=== PATIENT | female | born 1965 | race African-American/Black ===

== ENCOUNTER 2021-12-02 20:10 | Emergency (ER) | payer OTHER ==
[2021-12-02 20:35] VITALS: TEMP 98.5
[2021-12-02] MEDS ORDERED: IBUPROFEN 600 MG TAB PO STA (23:59)
[2021-12-02] MEDS ORDERED: SPIRONOLACTONE 25 MG TAB PO STA (23:59)
[2021-12-02] MEDS ORDERED: ACETAMINOPHEN TAB 325 MG TAB PO STA (23:59)
[2021-12-02] MEDS ORDERED: hydrALAZINE HCL 50 MG TAB PO STA (23:59)
[2021-12-02] MEDS ORDERED: amLODIPine 10 MG TAB PO STA (23:59)
--- NOTE | 2021-12-03 00:42 | ED ---
Recheck HPI - General Chief Complaint: Recheck/Abnormal Lab/Rx Stated Complaint: Hypertension Time Seen by Provider: 12/02/21 23:18 Source: patient Mode of arrival: ambulatory Limitations: no limitations - History of Present Illness Initial Comments: This patient is a 56-year-old woman who arrives here from [facility]. Patient states that her blood pressure was elevated, and they sent her here because it was so high. Patient states she just has a little bit of mild headache, no other symptoms. She states that she usually takes amlodipine, hydralazine, spironolactone, and clonidine, and she is out of her medicines. Patient states that they checked her blood pressure and it was 260/170. They gave her a dose of clonidine and sent here for evaluation. Complaint: other -: hour(s) Initial Visit For: other Returns Today for: other Symptoms Since Prior Visit: no new symptoms Associated Symptoms: none Treatments Prior to Arrival: other (Clonidine) - Related Data Allergies Allergy/AdvReac Type Severity Reaction Status Date / Time No Known Allergies Allergy Verified 12/02/21 20:33 Review of Systems ROS Statement: Those systems with pertinent positive or pertinent negative responses have been documented in the HPI. ROS Other: All systems not noted in ROS Statement are negative. Constitutional: Denies: fever, chills, weakness Eyes: Denies: vision change Respiratory: Denies: cough, dyspnea Cardiovascular: Denies: chest pain, palpitations, edema, syncope Gastrointestinal: Denies: abdominal pain, vomiting Genitourinary: Denies: dysuria, hematuria Musculoskeletal: Denies: back pain Neurological: Reports: headache. Denies: weakness, numbness, paresthesias, confusion Past Medical History Past Medical History: Hypertension History of Any Multi-Drug Resistant Organisms: None Reported Past Surgical History: No Surgical Hx Reported Past Psychological History: No Psychological Hx Reported Smoking Status: Current every day smoker Past Alcohol Use History: None Reported Past Drug Use History: Opiates General Exam Limitations: no limitations General appearance: alert, in no apparent distress Head exam: Present: atraumatic, normocephalic Eye exam: Present: normal appearance Respiratory exam: Present: normal lung sounds bilaterally. Absent: respiratory distress, wheezes, rales, rhonchi, stridor Cardiovascular Exam: Present: regular rate, normal rhythm, normal heart sounds. Absent: systolic murmur, diastolic murmur, rubs, gallop GI/Abdominal exam: Present: soft. Absent: distended, tenderness, guarding, rebound, rigid, mass Extremities exam: Present: normal inspection, normal capillary refill. Absent: pedal edema, calf tenderness Back exam: Present: normal inspection. Absent: CVA tenderness (R), CVA tenderness (L) Neurological exam: Present: alert, oriented X3, CN II-XII intact. Absent: motor sensory deficit Skin exam: Present: warm, dry, intact, normal color. Absent: rash Course Vital Signs 12/02/21 20:27 Temperature 98.5 F Pulse Rate 76 Respiratory 16 Rate Blood Pressure 119/80 O2 Sat by Pulse 97 Oximetry Medical Decision Making - Medical Decision Making Patient's 56-year-old woman with history of hypertension who had been out of her medications. We did provide dose of her medicines that were missed. The patient states that the [facility] is having her medication filled so she does not believe she will need more than what she has had tonight. She is feeling better. Disposition Clinical Impression: Hypertension Disposition: HOME SELF-CARE Condition: Good Instructions (If sedation given, give patient instructions): Hypertension (ED) Is patient prescribed a controlled substance at d/c from ED?: No Referrals: None,Stated [Primary Care Provider] - 1-2 days Time of Disposition: 00:39
[2021-12-03 01:02] VITALS: BP 114/102; PULSE 78; RESP 18
== END 2021-12-03 01:01 | disposition home or self-care (01) ==
LOC: EC 20:10
DX: I10 Essential (primary) hypertension (principal); F17.200 Nicotine dependence, unspecified, uncomplicated
CPT/HCPCS: 99283

== ENCOUNTER 2023-08-25 10:48 | Observation (INO) | payer OTHER ==
[2023-08-25 11:54] LABS: WBC 13.9 k/uL (3.8-10.6)
[2023-08-25 11:55] LABS: Basophils % (A) 0 %; Eosinophils % (A) 0 %; HCT 41.6 % (34.0-46.0); HGB 13.3 gm/dL (11.4-16.0); Lymphocytes # (A) 1.9 k/uL (1.0-4.8); Lymphocytes % (A) 14 %; MCH 27.9 pg (25.0-35.0); MCHC 31.9 g/dL (31.0-37.0); MCV 87.3 fL (80.0-100.0); Mean Platelet Volume 7.6; Monocytes # (A) 0.5 k/uL (0-1.0); Monocytes % (A) 4 %; Neutrophils # (A) 11.3 k/uL (1.3-7.7); Neutrophils % (A) 81 %; Platelet Count 174 k/uL (150-450); RBC 4.77 m/uL (3.80-5.40); RDW 13.1 % (11.5-15.5)
[2023-08-25 12:07] LABS: ALT 16 U/L (4-34); AST 34 U/L (14-36); African American GFR (CKD) 51 (>60 ml/min/1.73 sqM); Albumin 4.2 g/dL (3.5-5.0); Alkaline Phosphatase 74 U/L (38-126); Anion Gap 9 mmol/L; Blood Urea Nitrogen 17 mg/dL (7-17); Calcium 9.5 mg/dL (8.4-10.2); Carbon Dioxide 24 mmol/L (22-30); Chloride 104 mmol/L (98-107); Glucose 104 mg/dL (74-99); Non-African American GFR(CKD) 44 (>60 ml/min/1.73 sqM); Potassium 4.4 mmol/L (3.5-5.1); Sodium 137 mmol/L (137-145); Total Bilirubin 0.3 mg/dL (0.2-1.3)
--- NOTE | 2023-08-25 12:19 | XR ---
EXAMINATION TYPE: XR chest 2V DATE OF EXAM: 08/25/2023 COMPARISON: None HISTORY: 58 year-old female shortness of breath, difficulty breathing TECHNIQUE: PA and lateral views FINDINGS: Heart normal size. Aorta and pulmonary vasculature within normal limits. Some strandy atelectasis of the right base. No consolidation or pleural effusion otherwise seen. IMPRESSION: Some strandy right basilar atelectasis. Otherwise, no definite acute process.
[2023-08-25] MEDS: SODIUM CHLORIDE 0.9% 1,000 ML IV ONE (13:01)
[2023-08-25] MEDS: methylPREDNISolone SOD SUCCI 125 MG/2 ML VIAL IV STA (13:01)
[2023-08-25] MEDS: IPRATROPIUM-ALBUTEROL 3 ML NEB INHALATION STA (13:05)
[2023-08-25] MEDS ORDERED: NALOXONE 0.4 MG/ML 1 ML VIAL IV PRN (14:28)
[2023-08-25] MEDS ORDERED: ACETAMINOPHEN TAB 325 MG TAB PO PRN (14:28)
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
[2023-08-25] MEDS: IPRATROPIUM-ALBUTEROL 3 ML NEB INHALATION SCH (15:36)
[2023-08-25] MEDS: SODIUM CHLORIDE 0.9% 1,000 ML IV SCH (15:42)
[2023-08-25] MEDS: methylPREDNISolone SOD SUCCI 40 MG/ML 1 ML VIAL IV SCH (16:42)
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
[2023-08-25] MEDS ORDERED: PATIENT'S OWN (Buprenorphine Hcl/Naloxone Hcl [Suboxone 8 Mg-2 Mg Sl Film] 1 EACH Fil SUBLINGUAL SCH (18:30)
[2023-08-25] MEDS: BUPRENORPHINE-NALOX 8-2 MG TAB 1 EACH TAB.SUBL SL SCH (19:24)
[2023-08-25] MEDS: SYMBICORT 80-4.5 MCG INHALER INHALATION SCH (19:39)
[2023-08-25] MEDS: GABAPENTIN 300 MG CAP PO SCH (21:21)
[2023-08-25] MEDS: hydrOXYzine HCL 25 MG TAB PO PRN (22:16)
[2023-08-26] MEDS: BENZONATATE 100 MG CAP PO PRN (05:09)
[2023-08-26] MEDS ORDERED: ALBUTEROL NEBULIZED 2.5 MG/3 ML INHALATION PRN (07:00)
[2023-08-26] MEDS ORDERED: DEXTROSE 50% SYRINGE 50 ML IVP PRN ×2 (07:01)
[2023-08-26] MEDS: AZITHROMYCIN 500 MG TAB PO SCH (07:38)
[2023-08-26] MEDS: guaiFENesin 600 MG TABLET.ER PO SCH (07:38)
[2023-08-26] MEDS: SPIRONOLACTONE 25 MG TAB PO SCH (07:38)
[2023-08-26 07:42] LABS: Glucose,Whole Blood 113 mg/dL (70-110)
[2023-08-26] MEDS: INSULIN ASPART (NovoLOG) 100 UNIT/ML VIAL SQ SCH (07:45)
[2023-08-26 11:30] LABS: Basophils # (A) 0.01 X 10*3/uL (0.00-0.10); Basophils % (A) 0.1 %; Eosinophils # (A) 0 X 10*3/uL (0.04-0.35); Eosinophils % (A) 0 %; HCT 40.3 % (37.2-46.3); HGB 12.5 g/dL (12.0-15.0); Lymphocytes # (A) 1.27 X 10*3/uL (0.90-5.00); Lymphocytes % (A) 10.6 %; Monocytes # (A) 0.35 X 10*3/uL (0.20-1.00); Monocytes % (A) 2.9 %; NRBC Per 100 WBC 0 X 10*3/uL (0.00-0.01); Neutrophils # (A) 10.29 X 10*3/uL (1.80-7.70); Neutrophils % (A) 85.5 %; Platelet Count 165 X 10*3/uL (140-440); RBC 4.63 X 10*6/uL (4.10-5.20); RDW 13.1 % (11.5-14.5); WBC 12.03 X 10*3/uL (4.50-10.00)
[2023-08-26 11:33] LABS: BUN/Creat Ratio 12.45 Ratio (12.00-20.00); Blood Urea Nitrogen 13.7 mg/dL (9.0-27.0); Calcium 9.6 mg/dL (8.7-10.3); Carbon Dioxide 22.8 mmol/L (21.6-31.8); Chloride 105 mmol/L (96-109); Glucose 114 mg/dL (70-110); Potassium 4.3 mmol/L (3.5-5.5); Sodium 141 mmol/L (135-145)
[2023-08-26 11:43] LABS: Glucose,Whole Blood 121 mg/dL (70-110)
[2023-08-26] MEDS: cloNIDine HCL 0.1 MG TAB PO SCH (12:12)
[2023-08-26 14:35] VITALS: BMI 27.4
--- NOTE | 2023-08-26 14:56 | XR ---
EXAMINATION TYPE: XR chest 2V DATE OF EXAM: 08/26/2023 COMPARISON: 08/25/2023. HISTORY: Cough. TECHNIQUE: Frontal and lateral views of the chest are obtained. FINDINGS: There is no focal air space opacity, pleural effusion, or pneumothorax seen. The cardiac silhouette size is within normal limits. The osseous structures are intact. IMPRESSION: No acute cardiopulmonary process.
[2023-08-26 16:58] LABS: Glucose,Whole Blood 157 mg/dL (70-110)
--- NOTE | 2023-08-26 18:11 | P.PN ---
Subjective Progress Note Date: 08/26/23 (delayed charting seen at 1045) Patient is a 58-year-old female with diabetes, hypertension, chronic kidney disease, and prior history of adrenal and lung cancer who presented to the ER with worsening shortness of breath. Patient had been at [facility] several days ago and was diagnosed with influenza. She was given a dose of Decadron and placed on a Z-Johan and subsequently discharged home. On arrival to the ER today patient had significant shortness of breath with some respir atory distress. She was given DuoNebs, Solu-Medrol, and a 1 L normal saline bolus. Laboratory analysis included CBC, CMP, and troponin which were remarkable for white blood cell count of 13.9. Influenza A was positive. Chest x-ray was obtained which showed right basilar atelectasis. EKG showed no signs of ischemia. Arrangements were made for observation. Patient seen and examined at bedside. Patient complains that she is no better. She reports she is continuing to wheeze. She is frustrated that she is not getting her Catapres and states it is causing her headache. I explained that s he had low normal blood pressures yesterday and that 0.3 mg of Catapres would likely drop her blood pressure exceedingly low and cause symptoms. I explained that we can restart her at 0.1 mg of Catapres and she appears satisfied with that answer. We discussed that she does not have any indications for IV antibiotics that she tested positive for the flu which is a viral infection and that she has no signs of pneumonia on her x-ray but that this is likely coming from her COPD and that we should continue with steroids and bronchodilators. Vital signs reviewed General: Nontoxic, no distress, appears at stated age Cardiovascular: S1S2 reg, no murmur Lungs: Wheezing bilateral with ronchi, no rhonchi, no rales, no accessory muscle use Abdominal: Soft, nontender to palpation, no guarding Ext: No gross muscle atrophy, no edema b/l lower extremities, no contractures Neuro: CN II-XI grossly intact, no focal neuro deficits Psych: Alert, oriented, appropriate affect Assessment/Plan: Acute exacerbation of COPD Acute tracheobronchitis Influenza A positive -Zithromax 500 mg oral daily. Proclac is not >2 and CXR without PNA -Solu-Medrol 40 mg IV every 8 hours -Symbicort 2 puffs twice daily discontinued start budesonide 1 mg via nebulizer twice daily, formoterol 20 mcg via nebulizer twice daily -DuoNeb every 4 hours and every 2 hours as needed -Mucinex 600 mg oral twice daily Diabetes mellitus type 2 with neuropathy -Sliding scale insulin -Patient is diet controlled at home -Resume Neurontin 600 mg oral 3 times daily History of hypertension -Patient is currently normotensive. Continue to hold Norvasc 10 mg daily -Resume Catapres 0.1 mg 3 times daily -Aldactone 25 mg daily -Follow blood pressures Opiate use disorder in remission -Continue her Subutex Chronic: Prior history of adrenal, ovarian, and lung cancer History of stroke Chronic kidney disease stage II Patient transitioned to inpatient status. She has been observed for 24 hours without improvement despite around the clock breathing treatments and steroids, we are having to increase her bronchdilator regiment and discharge at this time would lead to worsening of her COPD and would compromise the patients health and could lead to respiratory failure and . Imaging: Chest x-ray ordered and reviewed which again shows no acute cardiopulmonary process. Data Review: Labs reviewed from today include CBC and basic metabolic profile which are re markable for white blood cell count 12.3. Procalcitonin 0.19 not consistent with bacterial infection. DVT prophylaxis:SCDs Anticipated discharge date: in AM Anticipated discharge place: Home This dictation was prepared using [employer] voice recognition software. Though every attempt is made to correct errors during dictation some may still exist. Objective - Vital Signs Vital signs: Vital Signs Temp 98.7 F 08/26/23 13:48 Pulse 69 08/26/23 13:48 Resp 16 08/26/23 13:48 BP 125/92 08/26/23 13:48 Pulse Ox 95 08/26/23 13:48 FiO2 Intake & Output 08/25/23 08/26/23 08/26/23 18:59 06:59 18:59 Weight 72.575 kg 72.575 kg 72.575 kg Other: # Voids 2 1 - Labs CBC & Chem 7: 08/26/23 06:43 08/26/23 06:43 Labs: Abnormal Lab Results - Last 24 Hours (Table) 08/25/23 08/26/23 08/26/23 Range/Units 11:45 06:43 06:43 WBC 12.03 H (4.50-10.00) X 10*3/uL MCHC 31.0 L (32.0-37.0) g/dL Immature Gran # 0.11 H (0.00-0.04) X 10*3/uL Neutrophils # 10.29 H (1.80-7.70) X 10*3/uL Eosinophils # 0 L (0.04-0.35) X 10*3/uL Anion Gap 13.20 H (4.00-12.00) mmol/L Est GFR (CKD-EPI) 58 L (>=60) Glucose 114 H (70-110) mg/dL POC Glucose (mg/dL) (70-110) mg/dL Procalcitonin 0.19 H (0.02-0.09) ng/mL 08/26/23 08/26/23 08/26/23 Range/Units 07:40 11:41 16:56 WBC (4.50-10.00) X 10*3/uL MCHC (32.0-37.0) g/dL Immature Gran # (0.00-0.04) X 10*3/uL Neutrophils # (1.80-7.70) X 10*3/uL Eosinophils # (0.04-0.35) X 10*3/uL Anion Gap (4.00-12.00) mmol/L Est GFR (CKD-EPI) (>=60) Glucose (70-110) mg/dL POC Glucose (mg/dL) 113 H 121 H 157 H (70-110) mg/dL Procalcitonin (0.02-0.09) ng/mL
[2023-08-26 20:01] LABS: Glucose,Whole Blood 118 mg/dL (70-110)
[2023-08-26] MEDS: polyethylene glycoL 3350 17 GM POWD.PACK PO SCH (20:55)
[2023-08-26] MEDS: FORMOTEROL FUMARATE 20 MCG/2 ML NEBU INHALATION SCH (21:41)
[2023-08-26] MEDS: BUDESONIDE 1 MG/2 ML NEBU INHALATION SCH (21:41)
[2023-08-27 06:04] LABS: Glucose,Whole Blood 109 mg/dL (70-110)
[2023-08-27 08:34] VITALS: BP 156/93; RESP 20; TEMP 98.8
[2023-08-27 11:20] LABS: Glucose,Whole Blood 137 mg/dL (70-110)
[2023-08-27 12:17] VITALS: PULSE 90
--- NOTE | 2023-08-27 13:22 | P.DS ---
Providers Date of admission: 08/25/23 14:29 Expected date of discharge: 08/27/23 Attending physician: Lorraine Torrez DO Primary care physician: Physician Nonstaff Hospital Course: Discharge Diagnosis: Acute exacerbation of COPD Acute tracheobronchitis Influenza A positive Diabetes mellitus type 2 with neuropathy History of hypertension Opiate use disorder in remission Prior history of adrenal, ovarian, and lung cancer History of stroke Chronic kidney disease stage II Hospital Course: Patient is a 58-year-old female with diabetes, hypertension, chronic kidney disease, and prior history of adrenal and lung cancer who presented to the ER with worsening shortness of breath. Patient had been at [facility] several days ago and was diagnosed with influenza. She was given a dose of Decadron and placed on a Z-Johan and subsequently discharged home. On arrival to the ER today patient had significant shortness of breath with some respiratory distress. She was given DuoNebs, Solu-Medrol, and a 1 L normal saline bolus. Laboratory analysis included CBC, CMP, and troponin which were remarkable for white blood cell count of 13.9. Influenza A was positive. Chest x-ray was obtained which showed right basilar atelectasis. EKG showed no signs of ischemia. Arrangements were made for observation. She continued to improve. She was asking to be discharged on the morning of 08/27/2023. She had had significant enough improvement with decreased wheezing. She was determined stable for discharge. Follow-up: She has been referred to Dr. Reardon, a primary care physician in our area for follow-up in the next 2 weeks. She will take 60 mg of prednisone daily for the next 5 days, she will use her nebulizer 4 times daily for the next 5 days and then 4 times daily as needed. She will continue to complete her Zithromax prescription. She will continue on guaifenesin. Patient seen and examined at bedside. Frustrated and wants to go home. Feels as though her improvement is slowing down. We discussed the natural course of fluid and that will likely take her 1 to 2 weeks to feel better. She feels that she can manage at home at this time. Vital signs reviewed and stable. General: Nontoxic, no distress, appears at stated age Cardiovascular: S1S2 reg, no murmur, positive posterior tibial pulse bilateral, Lungs: CTA bilateral, no rhonchi, no rales, no accessory muscle use Abdominal: Soft, nontender to palpation, no guarding, no appreciable organomegaly Ext: No gross muscle atrophy, no edema b/l lower extremities, no contractures Neuro: CN II-XI grossly intact, no focal neuro deficits Psych: Alert, oriented, appropriate affect A total of 35 minutes of time were spent preparing this complex discharge summary. Patient was discharged on 08/27/2023. This dictation was prepared using [employer] voice recognition software. Though every attempt is made to correct errors during dictation some may still exist. Patient Condition at Discharge: Stable Plan - Discharge Summary Discharge Rx Participant: Yes New Discharge Prescriptions: New RX: predniSONE [Deltasone] 60 mg PO DAILY #15 tab RX: Ipratropium-Albuterol Nebulize [Duoneb 0.5 mg-3 mg/3 ml Soln] 3 ml INHALATION QID #120 each RX: guaiFENesin [Mucinex] 600 mg PO Q12HR #15 tab Continue RX: polyethylene glycoL 3350 [Miralax] 17 gm PO HS RX: hydrOXYzine HCL [Atarax] 25 mg PO BID PRN PRN Reason: anxiety/sleep RX: Gabapentin 600 mg PO TID RX: cloNIDine HCL [Catapres] 0.3 mg PO TID RX: Budesonide/Formoterol Fumarate [Symbicort 80-4.5 Mcg Inhaler] 2 puff INHALATION RT-BID RX: Albuterol Inhaler [Ventolin Hfa Inhaler] 2 puff INHALATION RT-Q4H PRN #1 each PRN Reason: Shortness Of Breath RX: Dicyclomine HCl 10 mg PO BID RX: Benzonatate [Tessalon Perles] 100 mg PO TID PRN PRN Reason: Cough RX: Spironolactone [Aldactone] 25 mg PO DAILY RX: Buprenorphine HCl/Naloxone HCl [Suboxone 8 mg-2 mg Sl Film] 1 film SL BID@0630,1830 RX: Azithromycin [Zithromax Z Pack] See Taper PO DIRECTED Discontinued amLODIPine [Norvasc] 10 mg PO DAILY Discharge Medication List RX: Dicyclomine HCl 10 mg PO BID 01/25/22 [History] RX: Azithromycin [Zithromax Z Pack] See Taper PO DIRECTED 08/25/23 [History] RX: Benzonatate [Tessalon Perles] 100 mg PO TID PRN 08/25/23 [History] RX: Budesonide/Formoterol Fumarate [Symbicort 80-4.5 Mcg Inhaler] 2 puff INHALATION RT-BID 08/25/23 [History] RX: Buprenorphine HCl/Naloxone HCl [Suboxone 8 mg-2 mg Sl Film] 1 film SL BID@0630,1830 08/25/23 [History] RX: Gabapentin 600 mg PO TID 08/25/23 [History] RX: Spironolactone [Aldactone] 25 mg PO DAILY 08/25/23 [History] RX: cloNIDine HCL [Catapres] 0.3 mg PO TID 08/25/23 [History] RX: hydrOXYzine HCL [Atarax] 25 mg PO BID PRN 08/25/23 [History] RX: polyethylene glycoL 3350 [Miralax] 17 gm PO HS 08/25/23 [History] RX: Albuterol Inhaler [Ventolin Hfa Inhaler] 2 puff INHALATION RT-Q4H PRN #1 each 08/27/23 [Rx] RX: Ipratropium-Albuterol Nebulize [Duoneb 0.5 mg-3 mg/3 ml Soln] 3 ml INHALATION QID #120 each 08/27/23 [Rx] RX: guaiFENesin [Mucinex] 600 mg PO Q12HR #15 tab 08/27/23 [Rx] RX: predniSONE [Deltasone] 60 mg PO DAILY #15 tab 08/27/23 [Rx] Follow up Appointment(s)/Referral(s): Aleksander Reardon MD [REFERRING] - 2 Weeks (office is closed at time of discharge. Please call for follow-up appointment.) Nonstaff,Physician [Primary Care Provider] - 1-2 days (Please call a primary provider for follow-up appointment.) Activity/Diet/Wound Care/Special Instructions: Activity: As tolerated Diet: Regular Special Instructions: Use your nebulizer 4 times daily for the next 5 days and then change to 4 times daily as needed. Discharge Disposition: HOME SELF-CARE
[2023-08-27] MEDS ORDERED: cloNIDine HCL 0.2 MG TAB PO SCH (16:00)
== END 2023-08-27 13:21 | disposition home or self-care (01) ==
LOC: EC 10:48 → 6NMEDSUR 14:29 → 4SSUR 20:41 → OBSVTOIN 08-26 13:21 → INTOOBSV 08-26 13:21 → OBSVTOIN 08-26 18:09
PROVIDERS: ADMIT Internal Medicine; ATTEND Internal Medicine
DX: J44.1 Chronic obstructive pulmonary disease with (acute) exacerbation (principal); J10.1 Influenza due to other identified influenza virus with other respiratory manifestations; D72.829 Elevated white blood cell count, unspecified; J40 Bronchitis, not specified as acute or chronic; I12.9 Hypertensive chronic kidney disease with stage 1 through stage 4 chronic kidney disease, or unspecified chronic kidney disease; N18.2 Chronic kidney disease, stage 2 (mild); E11.22 Type 2 diabetes mellitus with diabetic chronic kidney disease; E11.40 Type 2 diabetes mellitus with diabetic neuropathy, unspecified; F11.21 Opioid dependence, in remission; F17.200 Nicotine dependence, unspecified, uncomplicated; Z85.43 Personal history of malignant neoplasm of ovary; Z85.118 Personal history of other malignant neoplasm of bronchus and lung; Z85.858 Personal history of malignant neoplasm of other endocrine glands; Z86.73 Personal history of transient ischemic attack (TIA), and cerebral infarction without residual deficits; Z79.51 Long term (current) use of inhaled steroids; Z79.899 Other long term (current) drug therapy
CPT/HCPCS: 36415; 71046; 80048; 80053; 83036; 83605; 84145; 84484; 85025; 87636; 93005; 94640; 96361; 96374; 96376; 99285